=== PATIENT | female | born 1940 | race Caucasian/White ===

== ENCOUNTER 2017-06-14 09:36 | Day surgery (SDC) | payer MEDICARE ==
[~2017-06-14 09:36] MED LIST: ACETAMINOPHEN 325 MG TAB PO; PHENYLEPHRINE HCL 10 % OPHTH. SOL 5ML OS
[2017-06-14] MEDS: LIDOCAINE 3.5 % 1ML OPHTH TOPICAL GEL OU (12:09)
[2017-06-14] MEDS: PHENYLEPHRINE 2.5% OPHTH SOL 2ML OS (12:09)
[2017-06-14] MEDS: CYCLOPENTOLATE 2% OPHTH SOLN 2ML BTL OS (12:09)
[2017-06-14] MEDS: OFLOXACIN 0.3 % (OCUFLOX) OPTH SOL 5ML OS (12:09)
[2017-06-14] MEDS: TROPICAMIDE 1% OPHTH SOLN 2ML OS (12:10)
[2017-06-14 12:24] LABS: BEDSIDE GLUCOSE 240 MG/DL (83-110)
[2017-06-14] MEDS ORDERED: fentaNYL 100 MCG/2 ML INJECTION (J3010) As Ordered (12:31)
[2017-06-14] MEDS ORDERED: MIDAZOLAM INJ 2 MG/2 ML VIAL (J2250) As Ordered (12:31)
[2017-06-14] MEDS: POVIDONE-IODINE 5% OPHTH PREP SOL 30ML As Ordered (13:01)
[2017-06-14] MEDS: TRIAMCINOLONE PRES FR 40 MG/ML 1ML(TRIESENCE)(OR EYE ONLY)(J3300 PER 1MG) As Ordered (13:06)
[2017-06-14] MEDS: LIDOCAINE 1% SDV 5 ML VIAL As Ordered (13:06)
[2017-06-14] MEDS: MOXIFLOXACIN IN BSS 0.25MG/0.25ML INTRACAMERAL INJ (OR EYE ONLY)(J2280) As Ordered (13:06)
[2017-06-14] MEDS: HEALON DUET (HEALON 10MG/ML 0.55ML & HEALON ENDOCOAT 30MG/ML 0.85ML) As Ordered (13:07)
[2017-06-14] MEDS: BSS with VANC/TOB/EPI for EYE CASES IR (13:07)
[2017-06-14] MEDS ORDERED: TRIMETHOBENZAMIDE 300 MG CAP PO (14:00)
[2017-06-14] MEDS: AcetaZOLAMIDE 500 MG ER CAP PO (14:00)
== END 2017-06-14 14:25 | disposition home or self-care (01) ==
LOC: M SDC 09:36
DX: H26.9 Unspecified cataract (principal); I11.0 Hypertensive heart disease with heart failure; I25.10 Atherosclerotic heart disease of native coronary artery without angina pectoris; M17.10 Unilateral primary osteoarthritis, unspecified knee; E78.5 Hyperlipidemia, unspecified; E11.51 Type 2 diabetes mellitus with diabetic peripheral angiopathy without gangrene; E66.9 Obesity, unspecified; I50.9 Heart failure, unspecified; Z95.5 Presence of coronary angioplasty implant and graft; Z95.2 Presence of prosthetic heart valve; Z79.899 Other long term (current) drug therapy; Z79.82 Long term (current) use of aspirin; Z79.02 Long term (current) use of antithrombotics/antiplatelets; Z79.84 Long term (current) use of oral hypoglycemic drugs
CPT/HCPCS: 66984

== ENCOUNTER 2017-08-22 07:10 | Day surgery (SDC) | payer MEDICARE ==
[~2017-08-22 07:10] MED LIST changes: +BSS with VANC/TOB/EPI for EYE CASES IR; -PHENYLEPHRINE HCL 10 % OPHTH. SOL 5ML OS
[2017-08-22] MEDS ORDERED: TRIMETHOBENZAMIDE 300 MG CAP PO (07:15)
[2017-08-22] MEDS: CYCLOPENTOLATE 2% OPHTH SOLN 2ML BTL OD (07:39)
[2017-08-22] MEDS: OFLOXACIN 0.3 % (OCUFLOX) OPTH SOL 5ML OD (07:40)
[2017-08-22] MEDS: LIDOCAINE 3.5 % 1ML OPHTH TOPICAL GEL OU (07:40)
[2017-08-22] MEDS: PHENYLEPHRINE 2.5% OPHTH SOL 2ML OD (07:40)
[2017-08-22] MEDS: TROPICAMIDE 1% OPHTH SOLN 2ML OD (07:40)
[2017-08-22 07:42] LABS: BEDSIDE GLUCOSE 154 MG/DL (83-110)
[2017-08-22] MEDS: ASPIRIN 81 MG CHEW TABLET PO (07:43)
[2017-08-22] MEDS: PHENYLEPHRINE HCL 10 % OPHTH. SOL 5ML OD (07:51)
[2017-08-22] MEDS: POVIDONE-IODINE 5% OPHTH PREP SOL 30ML As Ordered (08:03)
[2017-08-22] MEDS: LIDOCAINE 1% SDV 5 ML VIAL As Ordered (08:05)
[2017-08-22] MEDS ORDERED: MIDAZOLAM INJ 2 MG/2 ML VIAL (J2250) As Ordered (08:06)
[2017-08-22] MEDS: TRIAMCINOLONE PRES FR 40 MG/ML 1ML(TRIESENCE)(OR EYE ONLY)(J3300 PER 1MG) As Ordered (08:07)
[2017-08-22] MEDS: HEALON DUET (HEALON 10MG/ML 0.55ML & HEALON ENDOCOAT 30MG/ML 0.85ML) As Ordered (08:08)
[2017-08-22] MEDS: LIDOCAINE 2% W/EPIN INJ 20ML **PRES FREE As Ordered (08:08)
[2017-08-22] MEDS: MOXIFLOXACIN IN BSS 0.25MG/0.25ML INTRACAMERAL INJ (OR EYE ONLY)(J2280) As Ordered (08:08)
[2017-08-22] MEDS: AcetaZOLAMIDE 500 MG ER CAP PO (08:41)
== END 2017-08-22 09:25 | disposition home or self-care (01) ==
LOC: M SDC 07:10
DX: H25.9 Unspecified age-related cataract (principal); I25.10 Atherosclerotic heart disease of native coronary artery without angina pectoris; I50.9 Heart failure, unspecified; E11.9 Type 2 diabetes mellitus without complications; Z79.82 Long term (current) use of aspirin; I10 Essential (primary) hypertension; Z79.899 Other long term (current) drug therapy
CPT/HCPCS: 66984

== ENCOUNTER 2018-09-06 13:46 | Outpatient (RCR) | payer MEDICARE ==
[~2018-09-06 13:46] MED LIST changes: -ACETAMINOPHEN 325 MG TAB PO; +ASPI81TA26 PO; -BSS with VANC/TOB/EPI for EYE CASES IR; +CALC500T49 PO; +CALCTAB75 PO; +CLOP75TA2 PO; +CO Q PO; +COEN200C PO; +DITR5TAB PO; +FAMO20TA PO; +FURO20TA2 PO; +GLIM4TAB; +GLIM4TAB PO; +ISOS30TAB PO; +JANU100T PO; +METF10004 PO; +METF500T13 PO; +METO25TA4 PO; +NYST10CR; +OMEG100011 PO; +POTA10TA16 PO; +SIMV40TA2 PO; +VITA100067 PO
== END 2018-09-26 ==
LOC: M PT 13:46
PROVIDERS: ATTEND Surgery
DX: T14.8XXA Other injury of unspecified body region, initial encounter (principal); I89.0 Lymphedema, not elsewhere classified

== ENCOUNTER 2021-08-25 16:15 | Observation (INO) | payer MEDICARE ==
[~2021-08-25] VITALS: Ht 157.5 cm; Wt 86.2 kg
[~2021-08-25 16:15] MED LIST changes: -COEN200C PO; -GLIM4TAB; -GLIM4TAB PO; +GLIM4TAB5; +GLIM4TAB5 PO; +POTA-149 PO; -POTA10TA16 PO; +RA C200C2 PO; -SIMV40TA2 PO; +SIMV40TA20 PO
[2021-08-25 17:54] LABS: BASO % 0.4 % (0.0-1.0); EOS # 0.6 10^3/uL (0.0-0.5); EOS % 7.8 % (0.0-3.0); HEMATOCRIT 33.6 % (36.0-47.0); HEMOGLOBIN 10.6 g/dl (12.0-15.5); LYMPH # 1.7 10^3/uL (1.5-5.0); LYMPH % 22.5 % (24.0-44.0); MEAN CORPUSCULAR HEMOGLOBIN 30.7 pg (27.0-33.0); MEAN CORPUSCULAR HGB CONC 31.5 g/dl (32.0-36.5); MEAN CORPUSCULAR VOLUME 97.4 fl (80.0-96.0); MONO # 0.7 10^3/uL (0.0-0.8); MONO % 8.6 % (2.0-8.0); NEUTROPHILS # 4.6 10^3/uL (1.5-8.5); NEUTROPHILS % 60.4 % (36.0-66.0); PLATELET COUNT, AUTOMATED 483 10^3/uL (150-450); RED BLOOD COUNT 3.45 10^6/uL (4.00-5.40); WHITE BLOOD COUNT 7.6 10^3/uL (4.0-10.0)
[2021-08-25 18:28] LABS: BILIRUBIN,DIRECT 0.2 MG/DL (0.0-0.2); BILIRUBIN,TOTAL 0.7 MG/DL (0.2-1.0); CALCIUM LEVEL 8.6 MG/DL (8.8-10.2); CREATININE FOR GFR 1.18 MG/DL (0.55-1.30); FREE T4 1.13 NG/DL (0.76-1.46); GLOMERULAR FILTRATION RATE 46.9 (>32); POTASSIUM SERUM 4.2 MEQ/L (3.5-5.1); THYROID STIMULATING HORMONE 2.1 uIU/ML (0.358-3.740); TOTAL PROTEIN 6.4 GM/DL (6.4-8.2)
[2021-08-25 20:12] LABS: RSV AMPLIFICATION NEGATIVE (NEGATIVE)
[2021-08-25] MEDS ORDERED: LevoFLOXacin IV 750 MG in IV 1 EA IV ONE (20:20)
[2021-08-25] MEDS: ATORVASTATIN 20 MG TAB PO SCH (21:00)
[2021-08-25] MEDS ORDERED: ACETAMINOPHEN TAB 650MG DOSE (2X325MG) PO PRN (21:15)
[2021-08-25] MEDS ORDERED: GLUCAGON INJ 1MG VIAL SC PRN (21:15)
[2021-08-25] MEDS ORDERED: DEXTROSE 50% 50 ML SYRINGE IV PRN (21:15)
[2021-08-25] MEDS ORDERED: GLUCOSE 4GM CHEW TABLET PO PRN (21:15)
[2021-08-25 22:00] VITALS: BP 102/46
[2021-08-25 22:09] LABS: HEMOGLOBIN A1c 7.1 %
[2021-08-26] MEDS ORDERED: UNRESOLVED CLARIFICATION ENTRY XX SCH (00:01)
[2021-08-26] MEDS ORDERED: METO1TAB32 PO (00:52)
[2021-08-26] MEDS ORDERED: DOCU100C17 PO (00:52)
[2021-08-26] MEDS ORDERED: SENN8.6T58 PO (00:52)
[2021-08-26] MEDS ORDERED: GLIM4TAB5 PO (00:52)
[2021-08-26] MEDS ORDERED: MUPI2OI EXT (00:52)
[2021-08-26] MEDS ORDERED: COQ1200C PO (00:52)
[2021-08-26] MEDS ORDERED: NESI25TA PO (00:52)
[2021-08-26] MEDS ORDERED: LISI2.5T9 PO (00:52)
[2021-08-26] MEDS ORDERED: HYDR-4571 PO (00:52)
[2021-08-26] MEDS ORDERED: ACET-907 PO (00:52)
[2021-08-26] MEDS ORDERED: FURO20TA2 PO (00:52)
[2021-08-26] MEDS ORDERED: FAMO20TA PO (00:52)
[2021-08-26] MEDS ORDERED: FOLI1TAB11 PO (00:52)
[2021-08-26] MEDS ORDERED: ELIQ2.5T PO (00:52)
[2021-08-26] MEDS ORDERED: VITMTA PO (00:52)
[2021-08-26] MEDS ORDERED: ASPI-161 PO (02:07)
[2021-08-26] MEDS ORDERED: ATOR1TAB21 PO (02:07)
[2021-08-26] MEDS ORDERED: HOME MED LIST COMPLETE! XX SCH (02:10)
[2021-08-26] MEDS ORDERED: NORCO, ANEXSIA 5/325MG TABLET (HYDROcodone/ACETAMINOPHEN) PO PRN (03:35)
[2021-08-26 06:00] VITALS: BP 108/50
[2021-08-26] MEDS: INSULIN LISPRO (NovoLOG) PER UNIT SC SCH ×4 (06:00→18:39)
[2021-08-26 06:27] LABS: HEMATOCRIT 32.6 % (36.0-47.0); HEMOGLOBIN 10.5 g/dl (12.0-15.5); MEAN CORPUSCULAR HEMOGLOBIN 31.4 pg (27.0-33.0); MEAN CORPUSCULAR HGB CONC 32.2 g/dl (32.0-36.5); MEAN CORPUSCULAR VOLUME 97.6 fl (80.0-96.0); PLATELET COUNT, AUTOMATED 459 10^3/uL (150-450); RED BLOOD COUNT 3.34 10^6/uL (4.00-5.40)
[2021-08-26 06:45] LABS: INR 1.31; PARTIAL THROMBOPLASTIN TIME 34.5 SECONDS (25.9-37.0); PROTHROMBIN TIME 16.7 SECONDS (12.7-14.5)
[2021-08-26 07:00] LABS: BILIRUBIN,TOTAL 0.6 MG/DL (0.2-1.0); CALCIUM LEVEL 9.1 MG/DL (8.8-10.2); CREATININE FOR GFR 1.04 MG/DL (0.55-1.30); GLOMERULAR FILTRATION RATE 54.3 (>32); MAGNESIUM LEVEL 2.3 MG/DL (1.8-2.4); POTASSIUM SERUM 4.5 MEQ/L (3.5-5.1); TOTAL PROTEIN 6.6 GM/DL (6.4-8.2)
[2021-08-26] MEDS: LISINOPRIL *2.5 MG* TAB PO SCH (09:00)
[2021-08-26] MEDS: ASPIRIN 81MG ENTERIC TABLET PO SCH (09:00)
[2021-08-26] MEDS: METOPROLOL SUCC *XL* 12.5MG PER 1/2 TAB (TopROL *XL*) PO SCH (09:00)
[2021-08-26] MEDS: LACTOBACILLUS ACIDOPHILUS CAP (BACID) PO SCH (10:11)
[2021-08-26] MEDS: DOCUSATE SODIUM 100MG CAPSULE PO SCH ×2 (10:11→20:47)
[2021-08-26] MEDS: MULTIVITAMINS/MINERALS THERAP 1 TAB PO SCH (10:11)
[2021-08-26] MEDS: FOLIC ACID 1 MG TAB PO SCH (10:11)
[2021-08-26] MEDS: NYSTATIN 100,000 UNITS/GM TOPICAL PWD 15 GM TOP SCH ×2 (10:13→20:49)
[2021-08-26] MEDS: FUROSEMIDE 20MG/2ML VIAL (J1940) IV SCH ×2 (10:13→17:51)
[2021-08-26 15:11] VITALS: BP 109/54
[2021-08-26 15:16] LABS: APPEARANCE, BODY FLUID CLOUDY (CLEAR); PLEURAL FL COLOR RED (COLORLESS); SOURCE, BODY FLUID PLEURAL
[2021-08-26 15:24] VITALS: BP 112/52
[2021-08-26 16:01] VITALS: BP 122/72
[2021-08-26 17:31] VITALS: BP 115/59
[2021-08-26 20:12] VITALS: BP 129/66
[2021-08-26] MEDS: ATORVASTATIN 20 MG TAB PO SCH (20:47)
[2021-08-26] MEDS: APIXABAN 2.5 MG TAB (ELIQUIS) PO SCH (20:47)
[2021-08-26] MEDS ORDERED: SENNA 8.6 MG TAB (SENOKOT) PO SCH (21:00)
[2021-08-26] MEDS ORDERED: FAMOTIDINE 20 MG TAB PO SCH (21:00)
[2021-08-27 05:55] VITALS: BP 114/58
[2021-08-27 06:12] LABS: BASO % 0.4 % (0.0-1.0); EOS # 0.4 10^3/uL (0.0-0.5); EOS % 6.2 % (0.0-3.0); HEMATOCRIT 34.1 % (36.0-47.0); LYMPH # 1.8 10^3/uL (1.5-5.0); LYMPH % 25.4 % (24.0-44.0); MEAN CORPUSCULAR HEMOGLOBIN 31.3 pg (27.0-33.0); MEAN CORPUSCULAR HGB CONC 32.3 g/dl (32.0-36.5); MEAN CORPUSCULAR VOLUME 96.9 fl (80.0-96.0); MONO # 0.6 10^3/uL (0.0-0.8); NEUTROPHILS # 4.2 10^3/uL (1.5-8.5); NEUTROPHILS % 58.7 % (36.0-66.0); PLATELET COUNT, AUTOMATED 420 10^3/uL (150-450); RED BLOOD COUNT 3.52 10^6/uL (4.00-5.40); WHITE BLOOD COUNT 7.1 10^3/uL (4.0-10.0)
[2021-08-27 06:41] LABS: CALCIUM LEVEL 8.9 MG/DL (8.8-10.2); CREATININE FOR GFR 1.11 MG/DL (0.55-1.30); GLOMERULAR FILTRATION RATE 50.3 (>32); POTASSIUM SERUM 3.9 MEQ/L (3.5-5.1)
[2021-08-27] MEDS: FUROSEMIDE 20MG/2ML VIAL (J1940) IV SCH (08:21)
[2021-08-27] MEDS: INSULIN LISPRO (NovoLOG) PER UNIT SC SCH ×2 (08:21→12:20)
[2021-08-27] MEDS: DOCUSATE SODIUM 100MG CAPSULE PO SCH (08:21)
[2021-08-27] MEDS: LACTOBACILLUS ACIDOPHILUS CAP (BACID) PO SCH (08:22)
[2021-08-27] MEDS: MULTIVITAMINS/MINERALS THERAP 1 TAB PO SCH (08:22)
[2021-08-27] MEDS: LISINOPRIL *2.5 MG* TAB PO SCH (08:22)
[2021-08-27] MEDS: APIXABAN 2.5 MG TAB (ELIQUIS) PO SCH (08:22)
[2021-08-27] MEDS: ASPIRIN 81MG ENTERIC TABLET PO SCH (08:22)
[2021-08-27] MEDS: FOLIC ACID 1 MG TAB PO SCH (08:22)
[2021-08-27 08:23] VITALS: BP 122/64
[2021-08-27] MEDS: METOPROLOL SUCC *XL* 12.5MG PER 1/2 TAB (TopROL *XL*) PO SCH (08:23)
[2021-08-27] MEDS: NYSTATIN 100,000 UNITS/GM TOPICAL PWD 15 GM TOP SCH (08:23)
[2021-08-27] MEDS ORDERED: LEVO750T13 PO (10:54)
[2021-08-27] MEDS ORDERED: LevoFLOXacin IV 750 MG in IV 1 EA IV SCH (20:00)
[2021-08-27] MEDS ORDERED: INSULIN LISPRO (NovoLOG) PER UNIT SC SCH (21:00)
== END 2021-08-27 15:15 ==
LOC: M ED 16:15 → INTOOBSV 16:16 → M ED INP 16:16 → UNDOADMIN 21:11 → M MSPAV 22:00 → M ED INP 22:00 → UNDODISIN 08-27 15:15
PROVIDERS: ADMIT Family Medicine; ATTEND Family Medicine
DX: J90 Pleural effusion, not elsewhere classified (principal); B96.89 Other specified bacterial agents as the cause of diseases classified elsewhere; J98.11 Atelectasis; R91.8 Other nonspecific abnormal finding of lung field; I11.0 Hypertensive heart disease with heart failure; E11.9 Type 2 diabetes mellitus without complications; K21.9 Gastro-esophageal reflux disease without esophagitis; E66.01 Morbid (severe) obesity due to excess calories; I25.10 Atherosclerotic heart disease of native coronary artery without angina pectoris; Z95.1 Presence of aortocoronary bypass graft; D64.9 Anemia, unspecified; I50.9 Heart failure, unspecified; G47.33 Obstructive sleep apnea (adult) (pediatric); Z86.711 Personal history of pulmonary embolism; Z87.891 Personal history of nicotine dependence; Z79.899 Other long term (current) drug therapy; Z79.01 Long term (current) use of anticoagulants; Z79.82 Long term (current) use of aspirin; Z79.84 Long term (current) use of oral hypoglycemic drugs
CPT/HCPCS: 32555; 36415; 71045; 80048; 80053; 80076; 83036; 83605; 83690; 83735; 83880; 84145; 84439; 84443; 84484; 85025; 85027; 85610; 85730; 87040; 87070; 87077; 87186; 87205; 87426; 87631; 89051; 93005; 93041; 94760; 96365; 96375; 96376; 97161; 97165; 97530; 99285; G0378; J1815; J1940; J1956

== ENCOUNTER → 2024-01-03 | Outpatient (REF) | payer MEDICARE, MEDICAID ==
[~2024-01-03] MED LIST changes: +ACET-907 PO; +ASPI-615 PO; +ATOR1TAB21 PO; +COQ1200C PO; +DOCU100C17 PO; +ELIQ2.5T PO; +FOLI1TAB11 PO; +HYDR-4571 PO; +LEVO1TAB40 PO; +LISI2.5T9 PO; +METO1TAB32 PO; +MUPI2OI EXT; +NESI25TA PO; +NYST-13; -NYST10CR; +SENN8.6T58 PO; +VITMTA PO
[2024-01-03 18:29] LABS: HEMOGLOBIN A1c 6.7 % (4.0-6.0)
[2024-01-03 18:43] LABS: CHOLESTEROL RISK RATIO 4.39 (<5); HDL CHOLESTEROL 39.6 MG/DL (>40); NON-HDL-C 134.4 MG/DL
== END ==
LOC: M LAB REF 17:23
PROVIDERS: ATTEND Family Medicine
DX: E11.9 Type 2 diabetes mellitus without complications (principal); I10 Essential (primary) hypertension; E78.5 Hyperlipidemia, unspecified